=== PATIENT | male | born 1975 | race Caucasian/White ===

== ENCOUNTER 2018-06-30 02:09 | Emergency (ER) | payer SELFPAY ==
[2018-06-30] MEDS ORDERED: TETRACAINE HCL 0.5% OPH SOLN 4 ML OD ONE (03:10)
--- NOTE | 2018-06-30 03:11 | ER Document Report ---
ED Foreign Body - General Chief Complaint: Foreign Body in Eye Stated Complaint: FOREIGN OBJECT IN RIGHT EYE Time Seen by Provider: 06/30/18 03:03 Primary Care Provider: SILVINA JAVIER MD [ACTIVE STAFF] - Follow up tomorrow Notes: Patient is a 42-year-old male who presents the emergency department with a chief complaint of possible foreign body in his eye. He states that 2 days ago he was using a [employer] to cut metal. He states he was wearing his shades, but continued to have pain. He has tried flushing his eye multiple times, but did not have any relief. Denies any past medical history. He does not take any medications. TRAVEL OUTSIDE OF THE [place] IN LAST 30 DAYS: No - Related Data Allergies/Adverse Reactions: acetaminophen [From Tylenol] Adverse Reaction (Verified 10/12/11 15:20) Nausea Past Medical History - Social History Smoking Status: Unknown if Ever Smoked Family History: Reviewed & Not Pertinent - Immunizations Hx Diphtheria, Pertussis, Tetanus Vaccination: Yes Review of Systems - Review of Systems Notes: REVIEW OF SYSTEMS: CONSTITUTIONAL : Denies recent illness. Denies recent unintentional weight loss. Denies fever, chills, or sweats. EENT: See HPI CARDIOVASCULAR: Denies chest pain. RESPIRATORY: Denies shortness of breath, cough, congestion, difficulty breathing, or wheezing. GASTROINTESTINAL: Denies nausea, vomiting, and diarrhea. Denies abdominal pain. Denies constipation. GENITOURINARY: Denies difficulty urinating, burning, blood in urine, urgency or frequency. MUSCULOSKELETAL: Denies neck and back pain. Denies joint pain or swelling. SKIN: Denies rash, itchiness, or lesions HEMATOLOGIC : Denies easy bruising or bleeding. LYMPHATIC: Denies swollen, painful, enlarged glands. NEUROLOGICAL: Denies no numbness or tingling denies weakness. Denies headache. Denies altered mental status. Denies alteration in speech. PSYCHIATRIC: Denies stress, anxiety, alteration in sleep patterns, or depression. All other systems reviewed and negative. Physical Exam - Vital signs Vitals: Temp Pulse Resp BP Pulse Ox 98.0 F 102 H 18 173/98 H 100 06/30/18 02:13 06/30/18 02:13 06/30/18 02:13 06/30/18 02:13 06/30/18 02:13 - Notes Notes: PHYSICAL EXAMINATION: GENERAL: Appears well, healthy, well-nourished, no acute distress. HEAD: Normocephalic, atraumatic. EYES: PERRL, conjunctival irritation noted. Corneal abrasion noted at 6:00. Small foreign body noted floating in the eye. ENT: Moist mucous membranes. NECK: Supple, no noticeable swelling, redness, rash. Normal range of motion. LUNGS: Equal breath sounds bilaterally and clear to auscultation. No wheezes rales or rhonchi. CARDIOVASCULAR: S1-S2, regular rate, regular rhythm. Radial pulses 2+, normal. ABDOMEN: Normoactive bowel sounds. Soft, nontender, no guarding, no rebound tenderness, and no masses palpated. EXTREMITIES: Normal strength and range of motion, no pitting or edema. No cyanosis. NEUROLOGICAL: Moves all extremities upon command. Strength 5/5 in all extremities. PSYCH: Normal mood, normal affect. SKIN: Warm, dry. No rash, lesions, ulcerations noted. Normal skin turgor. Course - Re-evaluation Re-evalutation: 06/30/18 03:23 Patient's eye exam showed a small floating piece of what might have been a piece of wood or metal. It was removed with a Q-tip. He does have a corneal abrasion noted to his eye at the 6 o'clock position. He will be started on Polytrim eyedrops. He also follow-up with ophthalmology in the morning. He will also be given ocular eyedrops as needed for pain. Negative Corin sign, I do not suspect globe rupture. Verbal discharge instructions were given to the patient. They verbalized understanding. They are stable for discharge. - Vital Signs Vital signs: Temp Pulse Resp BP Pulse Ox 98.0 F 89 18 158/89 H 100 06/30/18 03:35 06/30/18 03:35 06/30/18 03:35 06/30/18 03:35 06/30/18 03:35 Discharge - Discharge Clinical Impression: Foreign body in eye Qualifiers: Encounter type: initial encounter Laterality: right Qualified Code(s): T15.91XA - Foreign body on external eye, part unspecified, right eye, initial encounter Disposition: HOME, SELF-CARE Additional Instructions: You were seen today in the emergency department for a foreign body in your right eye. The small foreign body was removed here in the emergency department please follow-up with ophthalmology first thing in the morning. Let them know that you are seen in the emergency department. You have been given antibiotic eyedrops. Please place 1 drop to the affected eye every 3 hours while awake. You have also been given Acular eyedrops. Please use 1 drop 3 times a day as needed for pain. Prescriptions: Ketorolac Tromethamine [Acular] 1 drop OD TIDP PRN #5 ml PRN Reason: Referrals: SILVINA JAVIER MD [ACTIVE STAFF] - Follow up tomorrow
[2018-06-30] MEDS ORDERED: POLYMYXIN B SULFATE/TMP OPH SOLN (10 ML/ER DISP) OD PRN (03:26)
[2018-06-30] MEDS ORDERED: KETOROLAC TROMETHAMINE 0.45% 4 DROP/0.4 ML DROPERETTE OD ONE (03:28)
[2018-06-30 03:45] VITALS: BP 158/89
== END 2018-06-30 03:45 | disposition home or self-care (01) ==
LOC: ER 02:09
DX: T15.91XA Foreign body on external eye, part unspecified, right eye, initial encounter (principal); X58.XXXA Exposure to other specified factors, initial encounter
CPT/HCPCS: 99283; J3490